=== PATIENT | male | born 1980 | race Caucasian/White ===

== ENCOUNTER → 2022-06-22 | Outpatient (CLI) | payer OTHER ==
--- NOTE | 2022-06-22 14:36 | DIREP ---
PROCEDURE:XR SPINE CERVICAL 2 OR 3 VIEWS COMPARISON:None. INDICATIONS:M54.2 CERVICAL SPINE PAIN TECHNIQUE:AP, lateral, swimmer's, and dens views of the cervical spine are provided. FINDINGS: ALIGNMENT:Normal. VERTEBRAE:Normal. DISK SPACES:Normal. CERVICAL RIBS:None. OTHER:Normal. CONCLUSION:Normal examination. Dictated by: Uziel Tejada M.D. on 06/22/2022 at 02:32 PM
--- NOTE | 2022-06-22 14:56 | DIREP ---
PROCEDURE:XRAY SPINE LUMBAR 2-3 VWS COMPARISON:None. INDICATIONS:M54.50 LOW BACK PAIN TECHNIQUE:AP, lateral, and coned down lateral views of the lumbar spine are provided. FINDINGS: ALIGNMENT:Normal. VERTEBRAE:Normal. DISK SPACES:Normal. SPONDYLOLISTHESIS:None. SACROILIAC JOINTS:Normal. OTHER:Normal. CONCLUSION:Normal examination. Dictated by: Rio Rivera MD on 06/22/2022 at 02:52 PM
== END | disposition home or self-care (01) ==
LOC: RAD 10:38
PROVIDERS: ATTEND Chiropractor
DX: M54.2 Cervicalgia (principal); M54.50 Low back pain, unspecified
CPT/HCPCS: 72040; 72100